=== PATIENT | female | born 1940 | race Caucasian/White ===

== ENCOUNTER 2019-07-11 00:55 | Emergency (ER) | payer MEDICARE, MEDICAID ==
[2019-07-11 01:25] VITALS: BP 141/69
== END 2019-07-11 03:15 | disposition left against medical advice (07) ==
LOC: ER 00:55
DX: Z53.21 Procedure and treatment not carried out due to patient leaving prior to being seen by health care provider (principal)

== ENCOUNTER 2019-12-07 22:07 | Emergency (ER) | payer MEDICARE, MEDICAID ==
--- NOTE | 2019-12-08 01:21 | ER Document Report ---
ED General - General Chief Complaint: Nose Bleed Stated Complaint: NOSE BLEED Time Seen by Provider: 12/08/19 01:09 TRAVEL OUTSIDE OF THE [place] IN LAST 30 DAYS: No - HPI Notes: Patient is a 79-year-old female who presents to the emergency department for evaluation. Initially when I asked her why she was here, she told me she could not remember. I reminded her of her chief complaint of nosebleed, and she did seem to recall. She states she had a nosebleed starting this afternoon. He was nontraumatic. She states it bled for some time, but she cannot tell me exactly how long. She states she came to the emergency department and it was still bleeding, but it stopped in the waiting room. Patient states that her son brought her here, she was concerned that she could not find her son afterwards, so she decided to still be seen in the emergency department despite the fact that her epistaxis had stopped. The patient is not on daily blood thinners, does report that she takes aspirin as needed for headaches. She cannot give me an idea as to how frequently that is. Otherwise she denies any pain. No chest pain or dizziness. She is seeing without difficulty. - Related Data Allergies/Adverse Reactions: penicillin V potassium [From Pen-Vee K] Allergy (Severe, Verified 12/07/19 22:45) Difficulty breathing sulfamethoxazole [From Bactrim] Allergy (Unknown, Verified 12/07/19 22:45) trimethoprim [From Bactrim] Allergy (Unknown, Verified 12/07/19 22:45) Home Medications: None Past Medical History - General Information source: Patient - Social History Smoking Status: Former Smoker Frequency of alcohol use: None Drug Abuse: None Family History: Reviewed & Not Pertinent Patient has homicidal ideation: No - Past Medical History Cardiac Medical History: Reports: Hx Coronary Artery Disease, Hx Hypercholesterolemia Pulmonary Medical History: Reports: Hx Bronchitis, Hx Pneumonia Denies: Hx Tuberculosis GI Medical History: Reports: Hx Gastroesophageal Reflux Disease, Hx Hiatal Hernia, Hx Ulcer Musculoskeletal Medical History: Reports Hx Arthritis, Reports Hx Fibromyalgia Psychiatric Medical History: Reports: Hx Depression Past Surgical History: Reports: Hx Appendectomy, Hx Section - x1, Hx Hysterectomy. Denies: Hx Pacemaker - Immunizations Hx Diphtheria, Pertussis, Tetanus Vaccination: No Hx Pneumococcal Vaccination: 06/28/11 Review of Systems - Review of Systems EENT: See HPI -: Yes All other systems reviewed and negative Physical Exam - Vital signs Vitals: Temp Pulse Resp BP Pulse Ox 98.3 F 110 H 17 119/62 92 12/07/19 22:41 12/07/19 22:41 12/07/19 22:41 12/07/19 22:41 12/07/19 22:41 - Notes Notes: This is a very pleasant 79-year-old female who appears younger than her stated age, in no acute distress. She is disheveled, smells of dog waste, but in no acute distress. Head is normocephalic and atraumatic, pupils are equal round, reactive to light. Conjunctive are pink. Patient has a very scant amount of dried blood in the left nostril, otherwise no active bleeding. Posterior pharynx is without blood. Onychosis moist. Heart is regular rate and rhythm, lungs are clear to oscillation bilaterally. Abdomen soft, nontender, normoactive bowel sounds. Extremities without cyanosis or clubbing. Skin is warm and dry. Patient is awake and alert, cooperative with examiner. She is oriented to person and place, disoriented to time. She is unable to tell me the year or the month. Course - Re-evaluation Re-evalutation: 12/08/19 01:20 Patient presents to the emergency department for evaluation. She is not frequently in the emergency department, and I do not have a significant medical history listed on her. My suspicion is that this is a chronic confusion and dementia. She does not have anyone present with her at this time. I do have a phone number for her son, with whom she lives. Her current condition will be discussed with her son, to determine whether or not this is an acute change or her baseline. Other than that, her epistaxis is entirely resolved. Her conjunctive are pink, I do not have a suspicion for a significant anemia. Patient is stable, we will continue to monitor. 12/08/19 01:47 I spoke at length with Beckydeny Caldwell, patient's [id number]. She reports to me that the patient has animals at home, the house smells strongly of urine and feces from these dogs. She states that the son that was present earlier is in fact an alcoholic. She is estranged from another son, who evidently tried to susan her and has reported drug issues. The memory issues are not new. Over the last several years the patient has had significant worsening of short-term memory issues. According to Ms. Caldwell, patient's Medicaid has lapsed, and family has neglected to care for her. I talked in length with the patient's nurse. APS will be notified for outpatient follow-up. The patient wants to be discharged to home. She is confused as to time, but is certainly competent at this moment. Case management consultation placed, will place paper order in consultation folder. Patient's [id number], Becky Caldwell, listed with address and phone number in the demographics section of the chart, would be happy to assist with further help for this patient. 12/08/19 02:22 [employer] office and APS notified. - Vital Signs Vital signs: Temp Pulse Resp BP Pulse Ox 98.3 F 110 H 17 119/62 92 12/07/19 22:46 12/07/19 22:41 12/07/19 22:41 12/07/19 22:41 12/07/19 22:41 Discharge - Discharge Clinical Impression: Epistaxis Condition: Stable Disposition: HOME, SELF-CARE Instructions: Nosebleed Instructions ([facility]) Additional Instructions: Try not to blow your nose. Do not take any aspirin for the next 48 hours. Follow-up with a primary care in 1 to 2 days. Return to the emergency department with worsening or new concerning symptoms of any sort.
[2019-12-08 03:21] VITALS: BP 120/65
== END 2019-12-08 03:22 | disposition home or self-care (01) ==
LOC: ER 22:07
DX: R04.0 Epistaxis (principal); R41.0 Disorientation, unspecified; I25.10 Atherosclerotic heart disease of native coronary artery without angina pectoris; Z60.2 Problems related to living alone; Z87.891 Personal history of nicotine dependence; Z88.0 Allergy status to penicillin; Z88.1 Allergy status to other antibiotic agents
CPT/HCPCS: 99283